=== PATIENT | female | born 1950 | race Caucasian/White ===

== ENCOUNTER → 2020-04-03 01:09 | Outpatient (CLI) | payer MEDICARE, SELFPAY ==
[2020-04-03 18:28] LABS: SARS-CoV-2 RNA PCR Negative
== END ==
PROVIDERS: PCP Family Medicine; Visit Provider Plastic Surgery
DX: Z01.812 Encounter for preprocedural laboratory examination (principal); Z20.822 Contact with and (suspected) exposure to COVID-19
CPT/HCPCS: C9803; U0003; U0005

== ENCOUNTER 2020-04-06 00:24 | Day surgery (SDC) | payer MEDICARE, SELFPAY ==
[2020-03-29 13:46] VITALS: BMI 27.3
[2020-04-06] VITALS (11 sets, daily range): BP systolic 122–161; BP diastolic 50–64; PULSE 56–61; RESP 16–20; TEMP 36.6; O2SAT 95–100
--- NOTE | 2020-04-06 07:11 | WPDHPUPDATE1 ---
History and Physical Update Update Date/Time: 04/06/20 07:11 History and Physical has been reviewed, including an updated exam of the patient. There are NO changes in the patient's condition. Risks, benefits, and alternatives have been discussed and questions answered. Patient agrees to proceed with procedure.
[2020-04-06] MEDS: LIDO 1%/EPINEPHRINE 1:100,000 50 ML VIAL 10 ML INFILTRATE (14:35)
--- NOTE | 2020-04-06 14:48 | SUR.OPER ---
frozen section given to adan by teresa weiss at [id number]
--- NOTE | 2020-04-06 17:00 | PM.PROC ---
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 She was taken to the operating room placed supine on the operating table. A time-out was held and confirmed. This procedure is being done under local anesthetic. The face was prepped and draped in usual fashion. The these orbital region on the left was infiltrated with 1% lidocaine with epinephrine. The nodular lesion was easily identified with. It had a need margin. The site was incised around the periphery with a 1-2 mm margin. This was taken off the underlying subcutaneous tissue and orbicularis muscle. The specimen was marked at its most inferior aspect and sent for frozen section. 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 I recommended a full-thickness graft from behind the left earlobe she consented on the table. The site was identified marked and infiltrated with 1% lidocaine with epinephrine. The ellipse of skin just into the dermis was taken as a thin graft. The donor site was closed with intradermal 4-0 Vicryl sutures and glue. The skin graft was thinned with scissors. It fit nicely in the recipient site and was sutured with 6 0 fast-absorbing gut and 6 0 nylon. Quilting sutures were placed with the nylon. Some ointment was applied and no other bandage. Care of this including direct pressure and gentle washing were explained to the patient. She was discharged with a prescription for cephalexin for 5 days. Surgeon: Farhat Mike MD
== END 2020-04-06 16:21 | disposition home or self-care (01) ==
PROVIDERS: PCP Family Medicine; Visit Provider Plastic Surgery
PROC: (CPT 11642; principal; 2020-04-06 14:15)
DX: C44.311 Basal cell carcinoma of skin of nose (principal)
CPT/HCPCS: 11642; 15260; 88305; 88331; A9270; C9803; U0003; U0005